=== PATIENT | female | born 1955 | race Caucasian/White ===

== ENCOUNTER 2024-06-25 01:09 | Emergency (ER) | payer OTHER ==
[2024-06-25] MEDS: Lidocaine 1% with EPINEPHrine 1:100,000 10 ML MDV INJECT ONE (01:31)
[2024-06-25] MEDS: Acetaminophen/HYDROcodone 325-5 MG Tab PO ONE (01:43)
[2024-06-25] MEDS: Ketorolac 30 MG/ML SDV IM ONE (02:34)
[2024-06-25] MEDS: Bacitracin Oint 1 GM U/D Packet TOP ONE (02:34)
== END 2024-06-25 02:48 | disposition home or self-care (01) ==
LOC: MW.ED 01:09
DX: S92.154A Nondisplaced avulsion fracture (chip fracture) of right talus, initial encounter for closed fracture (principal); S81.812A Laceration without foreign body, left lower leg, initial encounter; S00.83XA Contusion of other part of head, initial encounter; Z88.2 Allergy status to sulfonamides; Z79.899 Other long term (current) drug therapy; W18.39XA Other fall on same level, initial encounter; Y93.89 Activity, other specified
CPT/HCPCS: 12002; 70450; 73610; 73630; 96372; 99284; A9270; J1885